=== PATIENT | female | born 1970 | race Caucasian/White ===

== ENCOUNTER 2020-11-12 14:34 | Emergency (ER) | payer BC, SELFPAY ==
[2020-11-12 14:34] VITALS: BP 138/78; PULSE 70; RESP 16; TEMP 36.4; O2SAT 98; BMI 32.2
[2020-11-12 14:49] VITALS: BP 136/84; PULSE 65; RESP 17; O2SAT 99
--- NOTE | 2020-11-12 14:52 | EKG12_ITS ---
Test Reason : CP Blood Pressure : / mmHG Vent. Rate : 059 BPM Atrial Rate : 059 BPM P-R Int : 116 ms QRS Dur : 082 ms QT Int : 432 ms P-R-T Axes : 034 020 025 degrees QTc Int : 427 ms Sinus bradycardia Nonspecific ST and T wave abnormality Abnormal ECG Confirmed by SOULEYMANE HOWARD, LUCIO ([id number]), editorial specialist GARCIA REDDY ([id number]) on 11/18/2020 9:45:25 A M Referred By: YEISON Confirmed By:JAZMINE COMER MD
--- NOTE | 2020-11-12 14:53 | ED.DCSUM_ITS ---
History of Present Illness Chief Complaint: Chest Pain Informant: Patient Onset: Days - 2 Narrative: Intermittent substernal chest pain for the past 2 days. States sharp in nature radiating left arm lasting 15 to 20 seconds. States would have shortness of breath with this and sweats. Tobacco history that she is cutting back on. Father with IA history unknown age. Denies history of hypertension, diabetes, hypercholesterolemia. No recent travel, surgeries, or immobilizations. Of note she states she had Covid twice this year first time in November 28 time this past summer, states she has no residual symptoms from these. She reports she saw her medical records, 2012 hospitalization that she had a left ventricular perforation, however there was no surgical procedures done at that time there is no heart cath done at that time, she states she was hospitalized for 4 days that year. She has never had a heart cath, stress test was years ago. States pain worse with deep breaths. No history of PE or DVT. Prior similar symptoms: No Past Medical History - Allergies and Home Meds Allergies/Adverse Reactions: Allergies Penicillins Allergy (Verified 11/12/20 14:39) Anaphylaxis topiramate [From Topamax] Allergy (Verified 11/12/20 14:39) Rash Past Medical History: - - Asthma, Covid infection history x2 Smoking Status: Current every day smoker Review of Systems General: Denies: Chills, Fever, Sweats Eyes: Denies: Visual changes - bilaterally, Diplopia ENT: Denies: Rhinorrhea, Sore throat Cardiovascular: Denies: Chest pain, Palpitations Respiratory: Denies: Dyspnea, Cough, Dyspnea on exertion Gastrointestinal: Denies: Abdominal pain, Nausea, Vomiting, Diarrhea, Melena, Hematochezia Genitourinary: Denies: Dysuria, Hematuria, Frequency Musculoskeletal: Denies: Back pain, Extremity Pain Skin: Denies: Rash, Wounds Neurological: Denies: Headache, Weakness, Numbness Physical Exam Vital Signs/Narrative: Vital Signs Temp Pulse Resp BP Pulse Ox 11/12/20 14:49 65 17 136/84 H 99 11/12/20 14:34 97.6 F L 70 16 138/78 H 98 Diagnostic/Tx/Re-eval Clinical Impression(s) from Imaging Studies Chest X-Ray 11/12/20 16:45 IMPRESSION: Normal x-ray examination of the chest. Electronically Signed: Mackenzie Kelsey MD at 17:02 EST Tel , Service support , Abnormal Lab Results 11/12/20 11/12/20 11/12/20 15:00 15:00 15:00 WBC 7.7 RBC 4.28 Hgb 12.9 Hct 40.1 MCV 93.7 MCH 30.1 MCHC 32.2 RDW Std Deviation 43.5 RDW Coeff of Teddy 12.7 Plt Count 212 MPV 10.9 Immature Gran % (Auto) 0.300 Neut % (Auto) 51.5 Lymph % (Auto) 38.1 Cochran % (Auto) 8.4 Eos % (Auto) 1.3 Baso % (Auto) 0.4 Absolute Neuts (auto) 4.0 Absolute Lymphs (auto) 2.94 Nucleated RBC % 0 PT 12.1 INR 0.9 APTT 28.9 D-Dimer Quant (PE/DVT) 0.44 Sodium 142 Potassium 4.1 Chloride 111 H Carbon Dioxide 26.0 Anion Gap 5 BUN 20 H Creatinine 0.96 Estim Creat Clear Calc 70.72 Est GFR (MDRD) Af Amer 80 Est GFR (MDRD) Non-Af 66 BUN/Creatinine Ratio 20.9 H Glucose 89 Calcium 8.7 Troponin I < 0.015 11/12/20 17:45 WBC RBC Hgb Hct MCV MCH MCHC RDW Std Deviation RDW Coeff of Teddy Plt Count MPV Immature Gran % (Auto) Neut % (Auto) Lymph % (Auto) [place]chran % (Auto) Eos % (Auto) Baso % (Auto) Absolute Neuts (auto) Absolute Lymphs (auto) Nucleated RBC % PT INR APTT D-Dimer Quant (PE/DVT) Sodium Potassium Chloride Carbon Dioxide Anion Gap BUN Creatinine Estim Creat Clear Calc Est GFR (MDRD) Af Amer Est GFR (MDRD) Non-Af BUN/Creatinine Ratio Glucose Calcium Troponin I < 0.015 - EKG Initial EKG Interpretation: Sinus Rhythm - Sinus rate of 59, no ST changes there is T wave inversions in anterior leads V1 to V3. - Medical Decision Making Patient had T wave versions anterior leads with no old for comparison. Planing of pleuritic symptoms with history of Covid infection. Cardiac work-up including a D-dimer obtained and all within normal limits. Patient's heart score is a 3. Delta 3-hour troponin obtained also normal. Patient states just moved to the area, will give her follow-up with PCP and cardiology for outpatient reevaluation and work-up. With her chest pain with dyspnea was an outpatient Covid testing for further evaluation. Signs and symptoms discussed return. All questions were answered. ED Disposition - Plan for ED Patient: Disposition: Home or Assisted Living Diagnosis: Chest pain, Suspected COVID-19 virus infection Instructions: Coronavirus Disease 2019 (COVID-19): Overview, ED Chest Pain, Uncertain Cause Referrals: Conrado Hancock MD [STAFF PHYSICIAN] - 3-5 Days Conrado Moses MD [STAFF PHYSICIAN] - 1 Week
[2020-11-12] MEDS: Aspirin 81 MG TAB.CHEW 324 MG PO (15:03)
[2020-11-12 15:06] LABS: Absolute Lymphocyte Count 2.94 X10^3/uL (0.83-4.51); Basophil# 0.03 X10^3/uL; Basophil% 0.4 % (0-1); Eosinophils% 1.3 % (0-5); Hematocrit 40.1 % (37-47); Hemoglobin 12.9 g/dL (12.0-15.0); Lymphocyte # 2.94 X10^3/ul (4.0); Lymphocyte % 38.1 % (19-41); Mean Corp Hgb Conc 32.2 g/dL (32-36); Mean Corpuscular Hgb 30.1 pg (27.0-32.0); Mean Corpuscular Volume 93.7 fL (81-99); Mean Platelet Vol. 10.9 fl (6.2-12.0); Monocyte# 0.65 X10^3/uL; Monocyte% 8.4 % (0-10); NRBC Flagged by Analyzer 0 % (0-5); Neutrophil # 3.97 X10^3/uL (2.7-7.7); Neutrophil % 51.5 % (47-70); Platelet Count 212 K/mm3 (150-450); RBC Distribution Width CV 12.7 % (11.6-14.6); RBC Distribution Width SD 43.5 fl (35.1-43.9); Red Blood Count 4.28 M/mm3 (4.2-5.4); White Blood Count 7.7 K/mm3 (4.4-11.0)
[2020-11-12 15:20] LABS: International Normalized Ratio 0.9; Prothrombin Time (Protime)PT. 12.1 SECONDS (11.7-14.9)
[2020-11-12 15:21] LABS: Partial Thromboplast Time 28.9 Seconds (24.1-36.2)
[2020-11-12 15:23] LABS: Anion Gap 5 (5-15); BUN 20 mg/dL (7-18); BUN/Creat Ratio 20.9 RATIO (10-20); Calcium,Total 8.7 mg/dL (8.5-10.1); Chloride 111 mmol/L (98-107); Creatinine, Serum 0.96 mg/dL (0.55-1.02); EST Glomerular Filtration Rate 66 mL/min (>60); Est Glom Filt Rate - Afr Amer 80 mL/min (>60); Estimated Creatinine Clearance 70.72 ml/min; Glucose 89 mg/dL (74-106); Potassium 4.1 mmol/L (3.5-5.1); Sodium Level 142 mmol/L (136-145)
[2020-11-12 15:24] LABS: D-Dimer Quantitative (DVT/PE) 0.44 FEU/ug/m (0.27-0.49)
[2020-11-12 16:44] VITALS: BP 110/56; PULSE 48; RESP 14; O2SAT 99
--- NOTE | 2020-11-12 16:45 | RAD_ITS ---
STUDY: X-RAY CHEST REASON FOR EXAM: Female, 50 years old. LEFT CHEST PAIN WITH RADIATION TO LEFT ARM INTERMITTENT OVER 2 DAYS. PAIN TO BACK. SWEATING. SOB. PAIN WITH DEEP BREATHING. TECHNIQUE: Single AP portable view of the chest. COMPARISON: None. FINDINGS: The lungs are clear and expanded. There is no demonstrated pleural abnormality. Normal size heart. Normal mediastinum and keely. Normal visualized pulmonary arteries. Normal visualized aortic arch and descending thoracic aorta. Normal visualized thoracic spine. Normal visualized ribs, clavicles, and shoulders. There is no demonstrated abnormality of the visualized soft tissue structures of the upper abdomen. RAD/Chest 1 View (Portable) IMPRESSION: Normal x-ray examination of the chest. Electronically Signed: Mackenzie Kelsey MD at 17:02 EST Tel , Service support ,
[2020-11-12 18:00] VITALS: BP 130/72; PULSE 48; RESP 15; O2SAT 98
[2020-11-12 19:02] VITALS: BP 110/56; PULSE 52; RESP 14; O2SAT 100
--- NOTE | 2020-11-12 19:16 | ED.RN ---
resp tested pt for COVID prior to dc
== END 2020-11-12 19:16 | disposition home or self-care (01) ==
PROVIDERS: Emergency Provider Emergency Medicine
DX: R07.2 Precordial pain (principal); J45.909 Unspecified asthma, uncomplicated; Z20.828 Contact with and (suspected) exposure to other viral communicable diseases; F17.200 Nicotine dependence, unspecified, uncomplicated; Z86.19 Personal history of other infectious and parasitic diseases
CPT/HCPCS: 71045; 80048; 84484; 85025; 85379; 85610; 85730; 87635; 93005; 99285; A4216; U0003

== ENCOUNTER 2021-07-23 17:16 | Observation (INO) | payer BC, SELFPAY ==
[2021-07-23] VITALS (8 sets, daily range): BP systolic 107–135; BP diastolic 44–73; PULSE 56–79; RESP 12–17; TEMP 36.3–36.7; O2SAT 94–98; BMI 31.6; BMI 31.1
--- NOTE | 2021-07-23 17:45 | EKG12_ITS ---
Test Reason : CP Blood Pressure : / mmHG Vent. Rate : 069 BPM Atrial Rate : 069 BPM P-R Int : 126 ms QRS Dur : 084 ms QT Int : 418 ms P-R-T Axes : 052 037 030 degrees QTc Int : 447 ms Normal sinus rhythm Nonspecific ST and T wave abnormality Abnormal ECG Confirmed by KAYLEIGH HOWARD, CATHY ([id number]), metropolitan editor GARCIA REDDY ([id number]) on 07/26/2021 12:48:22 PM Referred By: ATIF Confirmed By:CATHY VICTOR MD
[2021-07-23] MEDS: Aspirin 81 MG TAB.CHEW 324 MG PO (18:11)
--- NOTE | 2021-07-23 18:15 | RAD_ITS ---
INDICATION: chest pain EXAMINATION/TECHNIQUE: X-RAY - XR Chest 2 Views COMPARISON: None. FINDINGS: The lungs are clear. The cardiomediastinal silhouette is unremarkable. No pleural effusion or pneumothorax. No acute osseous abnormalities. RAD/Chest PA and Lateral IMPRESSION: No acute radiographic abnormalities. Electronically Signed: Bernard Guzman MD at 18:43 EDT Tel , Service support ,
[2021-07-23 18:51] LABS: Absolute Lymphocyte Count 2.97 X10^3/uL (0.83-4.51); Absolute Neutrophil Count 3.7 X10^3/uL (2.0-7.7); Basophil# 0.03 X10^3/uL; Basophil% 0.4 % (0-1); Eosinophil# 0.18 X10^3/uL; Eosinophils% 2.4 % (0-5); Hematocrit 40.2 % (37-47); Hemoglobin 13.1 g/dL (12.0-15.0); Lymphocyte # 2.97 X10^3/ul (0.83-4.51); Lymphocyte % 39.3 % (19-41); Mean Corp Hgb Conc 32.6 g/dL (32-36); Mean Corpuscular Hgb 30.3 pg (27.0-32.0); Mean Corpuscular Volume 92.8 fL (81-99); Mean Platelet Vol. 11.1 fl (6.2-12.0); Monocyte# 0.61 X10^3/uL; Monocyte% 8.1 % (0-10); NRBC Flagged by Analyzer 0 % (0-5); Neutrophil # 3.73 X10^3/uL (2.7-7.7); Neutrophil % 49.4 % (47-70); Platelet Count 237 K/mm3 (150-450); RBC Distribution Width CV 12.3 % (11.6-14.6); RBC Distribution Width SD 41.9 fl (35.1-43.9); Red Blood Count 4.33 M/mm3 (4.2-5.4); White Blood Count 7.6 K/mm3 (4.4-11.0)
[2021-07-23 19:04] LABS: Anion Gap 7 (5-15); BUN 18 mg/dL (7-18); BUN/Creat Ratio 19.8 RATIO (10-20); Chloride 110 mmol/L (98-107); Creatinine, Serum 0.91 mg/dL (0.55-1.02); EST Glomerular Filtration Rate 70 mL/min (>60); Est Glom Filt Rate - Afr Amer 84 mL/min (>60); Estimated Creatinine Clearance 74.61 ml/min; Glucose 95 mg/dL (74-106); Potassium 3.7 mmol/L (3.5-5.1); Sodium Level 141 mmol/L (136-145); Troponin-I HS 4 pg/mL (3.0-54.0)
--- NOTE | 2021-07-23 19:27 | ED.VIS.CHEST ---
HPI History of Present Illness Chief Complaint: Chest Pain Narrative Narrative: Patient presenting for evaluation secondary chest pain. Patient has an underlying history of VSD, does not frequent physician but actually has follow-up with a weed burner coming within the next couple of weeks. Patient states that since yesterday she has developed chest pain. She describes it as a tightness type feeling that goes up into her jaw and down into her left arm. Is clearly exertional and has been associated with intermittent feelings as if she is going to pass out, and is associated with exertional dyspnea. Patient denies any DVT or PE risk factors. She has had a stress test but it was in the distant past around 9 years ago. She denies any premature family history of heart disease. She denies any recent illnesses. Review of systems otherwise negative. PFSH PFSH Home Medications albuterol sulfate 2 puff IH Q6H PRN 11/12/20 [History Last Taken Unknown] diclofenac sodium 75 mg PO DAILY 07/23/21 [History Last Taken Unknown] Allergy/AdvReac Type Severity Reaction Status Date / Time Penicillins Allergy Anaphylaxis Verified 07/23/21 17:22 topiramate [From Topamax] Allergy Rash Verified 07/23/21 17:22 Social History Smoking Status: Current every day smoker tobacco type: cigarettes ROS ROS ED Constitutional Constitutional ED: Denies fever(s) Eyes Eyes: Denies change in vision ENT ENT ED: Denies rhinorrhea or sore throat Cardiovascular Cardiovascular: Reports as per HPI and chest pain Respiratory/Chest Respiratory/Chest: Reports dyspnea Gastrointestinal Gastrointestinal: Denies abdominal pain, nausea or vomiting Genitourinary Genitourinary ED: Denies dysuria Musculoskeletal Musculoskeletal: Denies myalgias or neck pain Integumentary Denies rash Neurologic Neurologic: Denies headache(s), paresthesias or weakness Psychiatric Psychiatric: Denies depression Endocrine Endocrinology: Denies polydipsia or polyuria Hematologic/Lymphatic Hematologic/Lymphatic: Denies easy bleeding or easy bruising Allergic/Immunologic Allergic/Immunologic ED: Denies urticaria EXAM Physical Exam Const Vital Signs: 07/23/21 17:17 07/23/21 17:23 07/23/21 18:15 Temperature 98.1 F Temperature Source Oral Pulse Rate 79 Respiratory Rate 13 Respiratory Effort Normal Non-Labored Blood Pressure 135/73 H Blood Pressure Mean 93 Pulse Ox 98 96 Oxygen Delivery Method Room Air Room Air 07/23/21 18:23 07/23/21 19:11 Temperature Temperature Source Pulse Rate 65 60 Respiratory Rate 17 12 Respiratory Effort Blood Pressure 120/65 109/53 L Blood Pressure Mean 83 71 Pulse Ox 96 97 Oxygen Delivery Method Room Air Room Air Positive well nourished and well developed General Appearance ED: well developed and NAD HEENT Reports moist mucous membranes normocephalic and atraumatic Eyes EOMs intact bilaterally Neck no lymphadenopathy, supple and no JVD Chest Wall inspection of chest normal and palpation of chest normal Chest Narrative: No evidence of vesicular rash Resp normal respiratory effort and clear to auscultation bilaterally Auscultation: Negative for rales, rhonchi or wheezes Cardio regular rate, regular rhythm, S1 normal heart sound, S2 normal heart sound and no murmurs Peripheral Pulses: radial pulses present and posterior tibial pulses present GI normal to inspection, nondistended, normoactive bowel sounds, soft to palpation and non-tender Extremity normal to inspection Extremity Narrative: Calves are supple no palpable cord General Extremety ED: Negative for edema or tenderness General Extremity: Negative for edema Neuro oriented x3 and no sensory deficits noted Sensorium / Orientation: awake and alert Psych mental status grossly normal Skin no rashes or lesions noted Heart Score History: Highly Suspicious ECG: Nonspecific Repolarization Age: >45 - <65 years Risk Factors: 1 or 2 Risk Factors Troponin: </= Normal Limit Score: 5 MDM MDM MDM Narrative Medical decision making narrative: Patient presented secondary to chest pain. EKG shows no acute ischemic changes, but does show diffuse T wave flattening that was nonspecific. Chest x-ray by my personal review as well as radiology is unremarkable. CBC chemistry and troponin found to be unremarkable. Despite the patient's negative work-up, she does have a very concerning story with exertional chest pain dyspnea and has a heart score of at least 5. I believe that she requires admission for provocative testing. Patient be admitted on the hospitalist. Lab Data Labs: Laboratory Results - last 24 hr 07/23/21 07/23/21 17:31 17:31 WBC 7.6 RBC 4.33 Hgb 13.1 Hct 40.2 MCV 92.8 MCH 30.3 MCHC 32.6 RDW Std Deviation 41.9 RDW Coeff of Teddy 12.3 Plt Count 237 MPV 11.1 Immature Gran % (Auto) 0.400 Neut % (Auto) 49.4 Lymph % (Auto) 39.3 [place] % (Auto) 8.1 Eos % (Auto) 2.4 Baso % (Auto) 0.4 Absolute Neuts (auto) 3.7 Absolute Lymphs (auto) 2.97 Nucleated RBC % 0 Sodium 141 Potassium 3.7 Chloride 110 H Carbon Dioxide 24.0 Anion Gap 7 BUN 18 Creatinine 0.91 Estim Creat Clear Calc 74.61 Est GFR (MDRD) Af Amer 84 Est GFR (MDRD) Non-Af 70 BUN/Creatinine Ratio 19.8 Glucose 95 Calcium 9.0 Troponin I High Sens 4 Radiography Diagnostic Testing: Radiology Impression Chest X-Ray 07/23/21 18:15 IMPRESSION: No acute radiographic abnormalities. Electronically Signed: Bernard Guzman MD at 18:43 EDT Tel , Service support , EKG Initial EKG: Attestation: I personally reviewed and interpreted this EKG as follows: (Sinus rhythm at 69 nonspecific T wave flattening noted diffusely, normal intervals) Discharge Plan Triage Chief Complaint: Chest Pain ED Provider: Benton Kumar Dx/Rx/DC Orders Clinical Impression: Chest pain Prescriptions: No Action albuterol sulfate 1 PUFF inhaler 2 puff IH Q6H PRN (Reason: Wheezing) RF: 0 diclofenac sodium 75 mg tablet,delayed release (DR/EC) 75 mg PO DAILY RF: 0 Primary Care Provider: Care Physician,No Primary Referrals: Care Physician,No Primary [Primary Care Provider] - Disposition Disposition: Acute Care [facility]
--- NOTE | 2021-07-23 19:28 | HP.PCM.HOS_ITS ---
HPI - General General Date of Admission: 07/23/21 Date of Service: 07/23/21 Chief Complaint: Chest pain HPI Narrative The patient is a 50 y/o F w/ PMHx: OA, Asthma, Obesity, Tobacco use who presents to the [facility] ED on 07/23/21 with history of onset chest pain starting the day prior, substernal/L shoulder and back with radiation into her neck left also additionally with associated nausea, lightheadedness/dizziness with dyspnea, sensation of palpations prompting ED evaluation. She describes discomfort as a tightness/squeezing sensation however she intermittently does have sharp shooting discomfort and when she has these episodes she rates her discomfort 10 out of 10 in severity, currently upon ED evaluation reporting 4 out of 10 alth ough does appear extremely comfortable and not in pain. She reported plans to see Hydraulic Billet Maker this coming Monday. Patient with stress 2012 which was unremarkable. Patient also reports when she does have these episodes and feels short of breath she is checked her oxygenation and it has been decreased. Work- up in the ED T 98.1, heart rate 79, BP 135/73, respiratory rate 13, 98% on room air, CBC with WBC 7.6, hemoglobin 13.1, platelet 237 without marked shift, BMP with chloride 110 otherwise not marked appearing, high-sensitivity troponin 4, chest x-ray with no acute cardiopulmonary findings, EKG with nonspecific diffuse T wave flattening which is similar to prior. In the ED patient ministered aspirin 324 mg p.o. x1. [facility] Medical History (Updated 07/24/21 @ 02:[address] Chantell Thacker MD) Abdominal hernia Bulging disc Chronic post-concussion headache GERD (gastroesophageal reflux disease) Hiatal hernia IBS (irritable bowel syndrome) Mild cervical dysplasia PTSD (post-traumatic stress disorder) Home Medications albuterol sulfate 2 puff IH Q6H PRN 11/12/20 [History Last Taken Unknown] diclofenac sodium 75 mg PO DAILY 07/23/21 [History Last Taken Unknown] Allergy/AdvReac Type Severity Reaction Status Date / Time Penicillins Allergy Anaphylaxis Verified 07/23/21 17:22 topiramate [From Topamax] Allergy Rash Verified 07/23/21 17:22 Family History (Updated 07/24/21 @ 02:[address] Chantell Thcaker MD) Mother Hypertension Father Heart disease Surgical History (Updated 07/23/21 @ 20:45 by Margret Cohen) H/O wrist surgery Tubal ligation status Social History (Updated 07/24/21 @ 02:[address] Chantell Thacker MD) household members: other details: Patient notes her son lives with her. Smoking Status: Current every day smoker tobacco type: cigarettes Smoking packs per day: 0.5 Smoking cigarettes per day: 10.0 alcohol intake: current alcohol intake frequency: holidays/special occasions only substance use type: does not use ROS ROS Narrative Admission Review of Systems: CONSTITUTIONAL: No weight loss, fever, chills, + weakness or fatigue. HEENT: Eyes: No visual loss, blurred vision, double vision or yellow sclerae. Ears, Nose, Throat: No hearing loss, sneezing, congestion, runny nose or sore throat. SKIN: No rash or itching, lesions, wounds. CARDIOVASCULAR: + chest pain, chest pressure or chest discomfort, palpitations, No edema, orthopnea, syncopal events. RESPIRATORY: + shortness of breath, No cough or sputum, wheezing, hemoptysis. GASTROINTESTINAL: No anorexia, nausea, vomiting or diarrhea, abdominal pain, melena, BRBPR. GENITOURINARY: No dysuria, frequency, urgency or retention. NEUROLOGICAL: + LH/dizziness. No headache, paralysis, ataxia, numbness or tingling in the extremities, focal weakness, change in bowel or bladder control, seizure. MUSCULOSKELETAL: + muscle, back pain, joint pain or stiffness. HEMATOLOGIC: No anemia, bleeding or bruising. LYMPHATICS: No enlarged nodes. No history of splenectomy. PSYCHIATRIC: No history of depression or anxiety. ENDOCRINOLOGIC: + reports of sweating, cold or heat intolerance. No polyuria or polydipsia. ALLERGIES: No history of asthma, hives, eczema or rhinitis. Vital Signs Vital Signs Vital Signs: 07/23/21 17:17 07/23/21 17:23 07/23/21 18:15 Temperature 98.1 F Temperature Source Oral Pulse Rate 79 Respiratory Rate 13 Respiratory Effort Normal Non-Labored Blood Pressure 135/73 H Blood Pressure Mean 93 Pulse Ox 98 96 Oxygen Delivery Method Room Air Room Air 07/23/21 18:23 07/23/21 19:11 Temperature Temperature Source Pulse Rate 65 60 Respiratory Rate 17 12 Respiratory Effort Blood Pressure 120/65 109/53 L Blood Pressure Mean 83 71 Pulse Ox 96 97 Oxygen Delivery Method Room Air Room Air Weight Weight: 207 lb 10.807 oz Body Mass Index (BMI) 31.6 Physical Exam Narrative Physical Examination: General: Awake, alert, oriented x 3 and cooperative, seated upright in the ED bed, reports discomfort ongoing but appears very comfortable, very talkative. Skin: Normal color, normal turgor, no icterus, no cyanosis. HEENT: AT/NC, EOMI, PERRLA, mildly dry MM, no carotid bruits or JVD noted. Lungs: CTA bilaterally, moderate effort, mild decrease BL bases, no rales, ronchi or wheezing. Heart: Bradycardic with regular rhythm; no gallop, rub audible. Abdomen: Soft, obese, NTTP, ND, normal BS, no HSM. Extremities: No cyanosis, no clubbing, bilateral lower extremity ankle nonpitting chronic edema. Neurological: Patient awake, alert, oriented as noted, cognitive function intact; pupils equally reactive to light and accommodation, cranial nerves II- XII grossly normal, moving all 4 extremities, no focal deficits, strength preserved currently but at rest. Psychiatric: Affect appears normal, no acute evidence of depressive or anxiety feelings. Results Lab / Micro Data Result Diagrams: 07/23/21 17:31 07/23/21 17:31 Labs: Laboratory Results - last 24 hr 07/23/21 17:31: WBC 7.6, RBC 4.33, Hgb 13.1, Hct 40.2, MCV 92.8, MCH 30.3, MCHC 32.6, RDW Std Deviation 41.9, RDW Coeff of Teddy 12.3, Plt Count 237, MPV 11.1, Immature Gran % (Auto) 0.400, Neut % (Auto) 49.4, Lymph % (Auto) 39.3, [place] % (Auto) 8.1, Eos % (Auto) 2.4, Baso % (Auto) 0.4, Absolute Neuts (auto) 3.7, Absolute Lymphs (auto) 2.97, Nucleated RBC % 0 07/23/21 17:31: Sodium 141, Potassium 3.7, Chloride 110 H, Carbon Dioxide 24.0, Anion Gap 7, BUN 18, Creatinine 0.91, Estim Creat Clear Calc 74.61, Est GFR ( MDRD) Af Amer 84, Est GFR (MDRD) Non-Af 70, BUN/Creatinine Ratio 19.8, Glucose 95, Calcium 9.0, Troponin I High Sens 4 Radiology Impression Chest X-Ray 07/23/21 18:15 IMPRESSION: No acute radiographic abnormalities. Electronically Signed: Bernard Guzman MD at 18:43 EDT Tel , Service support , Assessment & Plan Assessment/Plan (1) Chest pain: QUALIFIERS: Chest pain type: unspecified Qualified Code(s): R07.9 - Chest pain, unspecified PLAN: The patient is a 50 y/o F w/ PMHx: OA, Asthma, Obesity, Tobacco use who presents to the [facility] ED on 07/23/21 with history of onset chest pain starting the day prior, substernal/L shoulder and back with radiation into her neck left also additionally with associated nausea, lightheadedness/dizziness with dyspnea, sensation of palpations prompting ED evaluation. 1. Chest Pain: EKG in ED nonspecific diffuse T wave flattening with no acute ev idence of ischemia similar to prior, CXR w/ no acute cardiopulmonary findings, initial trop high-sensitivity 4. Will admit to PCU, place on a monitored bed to assure no acute myocardial infarction with serial cardiac enzymes and EKGs. If repeat serial cardiac enzymes and EKGs remain unremarkable will pursue a.m. cardiac stress testing. Given unclear specific type of ventricular anomaly will request stress echo. Magnesium level requested. FLP in AM. ASA, NG, morphine. 2. Unclear specific type ventricular anomaly: Patient reports history of ventricular anomaly, unclear specific type, stress echo ordered as noted above. 3. Patient reported hypoxia with exertion: We will request ambulatory o xygenation assessments, continue #1 evaluation. 4. Chronic asthma, reported as exercise-induced: Encourage strongly tobacco cessation, will maintain on PRN albuterol, HOB, IS parameters. 5. Chronic bradycardia: Patient with ongoing bradycardia during evaluations, chronic, asymptomatic. 6. Obesity: Weight loss and lifestyle changes encouraged. 7. Tobacco Abuse: Encouraged cessation, inpatient consultation per RT, NR if desired. 8. DVT prophylaxis: SCDs, Lovenox. Charges/Coding Visit Charges OBSV E&M: [id number] Initial observation care L3
[2021-07-23 19:58] LABS: Magnesium 2.1 mg/dL (1.6-2.6)
--- NOTE | 2021-07-23 20:21 | EKG12_ITS ---
Test Reason : AM EKG Blood Pressure : / mmHG Vent. Rate : 053 BPM Atrial Rate : 053 BPM P-R Int : 136 ms QRS Dur : 086 ms QT Int : 482 ms P-R-T Axes : 050 035 067 degrees QTc Int : 452 ms Sinus bradycardia Nonspecific ST and T wave abnormality Abnormal ECG When compared with ECG of 23-JUL-2021 20:40, MANUAL COMPARISON REQUIRED, DATA IS UNCONFIRMED Confirmed by KAYLEIGH HOWARD, CATHY ([id number]), legal editor GARCIA REDDY ([id number]) on 07/27/2021 9:41:33 AM Referred By: BOO Confirmed By:CATHY VICTOR MD
[2021-07-23] MEDS: Famotidine 20 MG Tablet PO (20:51)
[2021-07-23] MEDS: 0.9% Normal Saline 1,000 ML 100 ML IV (20:51)
--- NOTE | 2021-07-23 21:07 | PCS.PANDOC ---
PANDEMIC DOCUMENTATION INITIATED: Date: 07/12/2021 Time: 190
[2021-07-23 21:59] LABS: Troponin-I HS 6 pg/mL (3.0-54.0)
[2021-07-24 00:25] LABS: Troponin-I HS 6 pg/mL (3.0-54.0)
[2021-07-24 00:26] VITALS: BP 101/63; PULSE 56; RESP 12; TEMP 36.6; O2SAT 97
[2021-07-24 03:00] VITALS: PULSE 52
[2021-07-24 05:47] LABS: Absolute Neutrophil Count 2.9 X10^3/uL (2.0-7.7); Basophil# 0.02 X10^3/uL; Basophil% 0.3 % (0-1); Eosinophil# 0.13 X10^3/uL; Hematocrit 38.6 % (37-47); Hemoglobin 12.2 g/dL (12.0-15.0); Lymphocyte % 43.4 % (19-41); Mean Corp Hgb Conc 31.6 g/dL (32-36); Mean Corpuscular Hgb 29.8 pg (27.0-32.0); Mean Corpuscular Volume 94.4 fL (81-99); Mean Platelet Vol. 10.5 fl (6.2-12.0); Monocyte% 9.3 % (0-10); NRBC Flagged by Analyzer 0 % (0-5); Neutrophil # 2.88 X10^3/uL (2.7-7.7); Neutrophil % 44.7 % (47-70); Platelet Count 214 K/mm3 (150-450); RBC Distribution Width CV 12.2 % (11.6-14.6); RBC Distribution Width SD 42.4 fl (35.1-43.9); Red Blood Count 4.09 M/mm3 (4.2-5.4); White Blood Count 6.5 K/mm3 (4.4-11.0)
--- NOTE | 2021-07-24 05:55 | EKG12_ITS ---
Test Reason : CP ADMISSION Blood Pressure : / mmHG Vent. Rate : 052 BPM Atrial Rate : 052 BPM P-R Int : 124 ms QRS Dur : 088 ms QT Int : 476 ms P-R-T Axes : 041 037 038 degrees QTc Int : 442 ms Sinus bradycardia Nonspecific T wave abnormality Abnormal ECG When compared with ECG of 23-JUL-2021 17:27, MANUAL COMPARISON REQUIRED, DATA IS UNCONFIRMED Confirmed by KAYLEIGH HOWARD, CATHY ([id number]), editorial director GARCIA REDDY ([id number]) on 07/27/2021 9:43:28 AM Referred By: BOO Confirmed By:CATHY VICTOR MD
[2021-07-24 06:18] LABS: ALB/GLOB Ratio 0.9 RATIO (0.9-2.4); AST(SGOT) 17 U/L (15-37); Alanine Aminotransfer ALT/SGPT 26 U/L (13-56); Alkaline Phosphatase 73 U/L (45-117); Anion Gap 5 (5-15); BUN 14 mg/dL (7-18); BUN/Creat Ratio 19.5 RATIO (10-20); Calcium,Total 7.9 mg/dL (8.5-10.1); Chloride 113 mmol/L (98-107); Cholesterol 176 mg/dL (200); Creatinine, Serum 0.72 mg/dL (0.55-1.02); EST Glomerular Filtration Rate 91 mL/min (>60); Est Glom Filt Rate - Afr Amer 110 mL/min (>60); Globulin 3.2 g/dL (2.2-4.2); Glucose 96 mg/dL (74-106); High Density Lipoprotein 36 mg/dL; Potassium 3.9 mmol/L (3.5-5.1); Protein, Total 6.2 g/dL (6.4-8.2); Sodium Level 142 mmol/L (136-145); Triglycerides 106 mg/dL; Very Low Density Lipoprotein 21 mg/dL (5-40)
[2021-07-24] MEDS: Aspirin E.C. 81 MG Tablet PO (06:19)
[2021-07-24] MEDS: 0.9% Normal Saline 1,000 ML 100 ML IV (06:19)
[2021-07-24 06:20] VITALS: BP 107/47; PULSE 54; RESP 14; TEMP 36.6; O2SAT 98
[2021-07-24 07:39] VITALS: PULSE 48
--- NOTE | 2021-07-24 07:40 | ECHOD_ITS ---
Reason For Study: Ventricular abnormality history Procedure This was a 2D Doppler, Color Flow transthoracic echocardiogram. Exam performed in department. Left Ventricle Normal LV size. The estimated ejection fraction is 40 %. Stage 2 diastolic dysfunction. There is mild to moderate global hypokinesis of the left ventricle. Right Ventricle Normal RV size. Normal systolic function. Atria Normal left atrium. Normal right atrium. Mitral Valve Normal mitral valve. Tricuspid Valve Normal tricuspid valve. Mild (1+) tricuspid valve insufficiency. Pulmonary artery systolic pressure is 26 mmHg. Aortic Valve Normal aortic valve. Trisinus/trileaflet aortic valve. Pulmonic Valve Normal pulmonic valve. Great Vessels Normal aortic root. Pericardium/Pleural No pericardial effusion. MMode/2D Measurements & Calculations LVIDd: 4.9 cm IVSd: 0.89 cm Ao root diam: 3.2 cm LVIDs: 3.2 cm LVPWd: 0.70 cm RVDd: 3.1 cm FS: 34.8 % LAV(MOD-bp): 40.6 ml LVAd ap4: 21.8 cm2 SV(MOD-sp4): 32.1 ml LAV(MOD-bp) Indexed: 19.5 ml/m2 LVLd ap4: 7.1 cm LAV(MOD-sp2): 48.0 ml EDV(MOD-sp4): 56.4 ml LAV(MOD-sp4): 31.3 ml EDV(sp4-el): 56.9 ml LVAs ap4: 12.7 cm2 LVLs ap4: 5.9 cm ESV(MOD-sp4): 24.3 ml ESV(sp4-el): 23.0 ml EF(MOD-sp4): 56.9 % EF(sp4-el): 59.5 % SV(sp4-el): 33.9 ml LA A4 area: 13.8 cm2 LA dimension(2D): 3.8 cm RA A4 area: 14.0 cm2 Doppler Measurements & Calculations MV E max pawan: 78.1 cm/sec Lat Peak E' Pawan: 12.0 cm/sec Med Peak E' Pawan: 6.8 cm/sec MV A max pawan: 52.8 cm/sec E/E' lat: 6.5 E/E' med: 11.4 MV E/A: 1.5 Ao V2 max: 138.2 cm/sec LV V1 max: 96.3 cm/sec PA V2 max: 87.4 cm/sec Ao max P.6 mmHg LV V1 max P.7 mmHg Ao V2 mean: 98.6 cm/sec Ao mean P.2 mmHg Ao V2 VTI: 37.0 cm TR max pawan: 239.4 cm/sec TR max P.9 mmHg ECHO/Echo Complete Interpretation Summary Normal LV size. The estimated ejection fraction is 40 %. There is mild to moderate global hypokinesis of the left ventricle. Stage 2 diastolic dysfunction. Pulmonary artery systolic pressure is 26 mmHg. Ordering Physician: Kaushik Arana Performed By: Kita Diaz, CASSY, RVT
[2021-07-24 07:50] VITALS: O2SAT 95
--- NOTE | 2021-07-24 11:16 | STRESSREP ---
Stress Test Report Pharmacologic myocardial perfusion stress test. 50-year-old lady with a history of obstructive sleep apnea and chest pain. Stress protocol: Resting KG demonstrates sinus bradycardia with a rate of 41 bpm normal intervals are noted. 0.4 mg of regadenoson was infused per usual protocol followed by rapid intravenous saline flush injection continuous EKG monitoring was performed. The patient maintained sinus rhythm throughout the recording. At rest there were no ST or T wave changes noted to suggest abnormal flow reserve and at peak infusion nonspecific ST changes were noted with did not meet the criteria for ischemia. The peak blood pressure was 85 bpm which was 50% of max infected heart rate. The final blood pressure was 118/66 mmHg. Myocardial perfusion protocol. 13.1 mCi of technetium 99m sestamibi was injected at rest. 0.4 mg of regadenoson was infused per usual protocol peak infusion 41.0 mCi of technetium 99m sestamibi was injected stress images were obtained stress and rest images were reconstructed and compared in the short axis vertical long horizontal long axis. Gated images were also obtained per Perfusion SPECT analysis: Review of the stress images demonstrate a medium size defect noted involving the anterior septal wall to the apex. The lateral wall and inferior wall appeared to be well perfused. The resting images demonstrate a similar pattern in the similar distribution to a similar extent. The above suggests anterior septal scarring. Cardiomyopathy cannot be excluded. Gated SPECT analysis: The gated ejection fraction is 37%. Conclusion: Pharmacologic myocardial perfusion stress test with evidence of previous anterior septal scarring. No ischemia noted. Reduced ejection fraction.
--- NOTE | 2021-07-24 12:11 | PCM.DC ---
Discharge Instructions Diet Discharge Diet: Low fat / Low cholesterol and 2000 mg Sodium Diet Activity Discharge Activity: Return to Normal Activity Dressing / Incision Call your doctor if you observe: Fever of 101 or Higher, Coldness, Increased Pain, Numbness or Tingling, Change in Color, Inability to urinate, Inability to have a bowel movement, Using more than 1 pad per hour, Shortness of breath, Dizziness, Fainting spells, Swelling in the ankles, Chest pain, Prolonged hiccupping, Increased palpitations (irregular heartbeat), Calf discomfort and Uncontrolled pain Follow Up Care Test Results: Test results from this visit will be discussed in further detail at your follow-up appointment, if applicable. 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 Patient has appointment in 3 weeks. Discharge Orders/Prescriptions Prescriptions: New lisinopril 2.5 mg tablet 2.5 mg PO DAILY Qty: 30 RF: 0 Continued albuterol sulfate 1 PUFF inhaler 2 puff IH Q6H PRN (Reason: Wheezing) RF: 0 Held diclofenac sodium 75 mg tablet,delayed release (DR/EC) 75 mg PO DAILY RF: 0 Hold Instructions: Hold it for 2 weeks. Discussed with PCP as patient has congestive heart failure Referrals / Follow Up: Care Physician,No Primary [Primary Care Provider] - Within 2 Weeks Disposition Disposition (needs filled in before D/C Order can be placed): Home, Self Care
--- NOTE | 2021-07-24 12:21 | DS.PCM_ITS ---
Providers Date of Admission: 07/23/21 Primary Care Physician: Kalee Primary Care Phys Reason For Visit: CHEST PAIN Diagnosis Discharge Diagnosis (1) Chest pain: Status: Acute Code(s): R07.9 - Chest pain, unspecified Qualifiers: Chest pain type: unspecified Qualified Code(s): R07.9 - Chest pain, unspecified Medications at Discharge Home Medications albuterol sulfate 2 puff IH Q6H PRN 11/12/20 diclofenac sodium 75 mg PO DAILY 07/23/21 lisinopril 2.5 mg PO DAILY #30 tab 07/24/21 Hospital Course Summary of Care Provided Hospital Course: This 50-year-old female came to ER for chest pain mellitus substernal pressure-like, tightness sharp with radiation to left shoulder and back and left neck. Patient was admitted in PCU. Serial troponins negative. Twelve-lead EKG nonspecific T wave flattening, no change from prior EKG. Patient had 2D echo and a treadmill converted to pharmacological stress t est. Stress test reported no acute ischemia but old anterior septal scarring. 2D echo reported EF 40% with mild to moderate global hypokinesis of left ventricle. Stage II diastolic dysfunction. PASP 26 mmHg. 1+ TR. Patient has appointment with the steward/stewardess second class on in 1 to 2 weeks. Fasting profile shows low HDL 36 otherwise normal. Serum magnesium level normal. Patient other chronic Coumadin include chronic intermittent exercise-induced asthma, chronic bradycardia, obesity and tobacco abuse. As per echo, patient has chronic systolic and diastolic heart failure for which low-dose lisinopril prescribed. Patient not candidate for beta-jamison because of bradycardia. The patient is discharged home. Discharge medication reconciliation done. Discharge follow-up instructions completed. Discharge process discussed with the patient and all questions were answered to patient's satisfaction. Total time spent, exact 35 minutes on discharge meds reconciliation, examination, coordination of care with nurses and ancillary staff, review of imaging and blood test and discussion with the patient on follow-up instructions Physical Exam Narrative Physical exam General: Alert, Oriented x3, Cooperative HEENT: Atraumatic, PERRLA, EOMI, Normocephalic Oral: No Gingival or Mucosal Lesions/ Ulcerations Neck: Supple, No JVD, Negative Carotid Bruits Lungs: Air entry diminished in bilateral lung bases. No crepitation/rhonchi Cardiovascular: Regular rate, Regular Rhythm, Normal S1, Normal S2, grade 3/6 LLSB systolic murmur. Abdomen: Bowel Sounds Present, Soft, Non Tender, Non-Distended : No renal angle tenderness. No suprapubic tenderness. Extremities: No edema, Capillary Refill Less than 3 Seconds Skin: No rashes, No breakdown Musculoskeletal: No Tenderness to Palpation of Joints or Extremities Neurological: Cranial nerves II-XII grossly intact, DTR 2+/4 and Symmetrical, Neuro grossly intact Psych/Mental Status: Normal Affect, Appropriate. Weight / BMI Weight Weight: 208 lb 5.389 oz Body Mass Index (BMI) 31.1 ABG / Lab / Microbiology Data Result Diagrams: 07/24/21 05:14 07/24/21 05:14 Laboratory: Laboratory Results - last 24 hr 07/23/21 17:31: WBC 7.6, RBC 4.33, Hgb 13.1, Hct 40.2, MCV 92.8, MCH 30.3, MCHC 32.6, RDW Std Deviation 41.9, RDW Coeff of Teddy 12.3, Plt Count 237, MPV 11.1, Immature Gran % (Auto) 0.400, Neut % (Auto) 49.4, Lymph % (Auto) 39.3, [place] % (Auto) 8.1, Eos % (Auto) 2.4, Baso % (Auto) 0.4, Absolute Neuts (auto) 3.7, Absolute Lymphs (auto) 2.97, Nucleated RBC % 0 07/23/21 17:31: Sodium 141, Potassium 3.7, Chloride 110 H, Carbon Dioxide 24.0, Anion Gap 7, BUN 18, Creatinine 0.91, Estim Creat Clear Calc 74.61, Est GFR (MDRD) Af Amer 84, Est GFR (MDRD) Non-Af 70, BUN/Creatinine Ratio 19.8, Glucose 95, Calcium 9.0, Troponin I High Sens 4 07/23/21 17:31: Magnesium 2.1 07/23/21 21:07: Troponin I High Sens 6 07/23/21 23:45: Troponin I High Sens 6 07/24/21 05:14: WBC 6.5, RBC 4.09 L, Hgb 12.2, Hct 38.6, MCV 94.4, MCH 29.8, MCHC 31.6 L, RDW Std Deviation 42.4, RDW Coeff of Teddy 12.2, Plt Count 214, MPV 10.5, Immature Gran % (Auto) 0.300, Neut % (Auto) 44.7 L, Lymph % (Auto) 43.4 H, [place] % (Auto) 9.3, Eos % (Auto) 2.0, Baso % (Auto) 0.3, Absolute Neuts (auto) 2.9, Absolute Lymphs (auto) 2.80, Nucleated RBC % 0 07/24/21 05:14: Sodium 142, Potassium 3.9, Chloride 113 H, Carbon Dioxide 24.0, Anion Gap 5, BUN 14, Creatinine 0.72, Estim Creat Clear Calc 94.30, Est GFR (MDRD) Af Amer 110, Est GFR (MDRD) Non-Af 91, BUN/Creatinine Ratio 19.5, Glucose 96, Calcium 7.9 L, Total Bilirubin 0.30, AST 17, ALT 26, Alkaline Phosphatase 73, Total Protein 6.2 L, Albumin 3.0 L, Globulin 3.2, Albumin/Globulin Ratio 0.9, Triglycerides 106, Cholesterol 176, LDL Cholesterol 119, VLDL Cholesterol 21, HDL Cholesterol 36 L Microbiology: Microbiology 07/23/21 19:45 Nasal Secretion SARS-CoV-2 Antigen (Rapid) - Final Radiography Diagnostic Testing: Radiology Impression Chest X-Ray 07/23/21 18:15 IMPRESSION: No acute radiographic abnormalities. Electronically Signed: Bernard Guzman MD at 18:43 EDT Tel , Service support , Echocardiogram 07/24/21 07:40 Interpretation Summary Normal LV size. The estimated ejection fraction is 40 %. There is mild to moderate global hypokinesis of the left ventricle. Stage 2 diastolic dysfunction. Pulmonary artery systolic pressure is 26 mmHg. Ordering Physician: Kaushik Arana Performed By: Kita Diaz, CASSY, RVT D/C Instructions Discharge Diet: Low fat / Low cholesterol and 2000 mg Sodium Diet Call your doctor if you observe: Fever of 101 or Higher, Coldness, Increased Pain, Numbness or Tingling, Change in Color, Inability to urinate, Inability to have a bowel movement, Using more than 1 pad per hour, Shortness of breath, Dizziness, Fainting spells, Swelling in the ankles, Chest pain, Prolonged hiccupping, Increased palpitations (irregular heartbeat), Calf discomfort and Uncontrolled pain Meaningful Use Info Meaningful Use Diagnoses (Choose all that apply): CHF CHF DOROTHY/ARB ordered at discharge?: Yes Documented LVEF (%): 40 Discharge Plan Admission Admit Date/Time: 07/23/21 19:38 Primary Reason for Your Visit: Atypical chest pain Attending Provider: Kaushik Arana Primary Care Provider: Care Kalee Nguyen Primary Instructions Patient Instructions: ED Chest Pain, Noncardiac, Heart Failure Additional Instructions / Restrictions: Follow-up Dr Miller, [facility] 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 Patient has appointment in 3 weeks. Discharge Orders/Prescriptions Prescriptions: New lisinopril 2.5 mg tablet 2.5 mg PO DAILY Qty: 30 RF: 0 Continued albuterol sulfate 1 PUFF inhaler 2 puff IH Q6H PRN (Reason: Wheezing) RF: 0 Held diclofenac sodium 75 mg tablet,delayed release (DR/EC) 75 mg PO DAILY RF: 0 Hold Instructions: Hold it for 2 weeks. Discussed with PCP as patient has congestive heart failure Referrals / Follow Up: Care Physician,No Primary [Primary Care Provider] - Within 2 Weeks Disposition Disposition (needs filled in before D/C Order can be placed): Home, Self Care Charges/Coding Visit Charges OBSV E&M: 75399 Observation care discharge
[2021-07-24 13:18] VITALS: BP 107/47; PULSE 54; RESP 14; TEMP 36.6; O2SAT 98
== END 2021-07-24 12:18 | disposition home or self-care (01) ==
LOC: ED 19:30 → PCU 19:56
PROVIDERS: Admitting Provider Family Medicine; Emergency Provider Emergency Medicine; Visit Provider Internal Medicine
DX: R07.89 Other chest pain (principal); F17.210 Nicotine dependence, cigarettes, uncomplicated; E66.9 Obesity, unspecified; I50.42 Chronic combined systolic (congestive) and diastolic (congestive) heart failure; R00.1 Bradycardia, unspecified; J45.990 Exercise induced bronchospasm; K21.9 Gastro-esophageal reflux disease without esophagitis; K58.9 Irritable bowel syndrome, unspecified; F43.10 Post-traumatic stress disorder, unspecified; Z79.899 Other long term (current) drug therapy; Z68.31 Body mass index [BMI] 31.0-31.9, adult
CPT/HCPCS: 36415; 71046; 78452; 80048; 80053; 80061; 83735; 84484; 85025; 87426; 93005; 93017; 93306; 96360; 96361; 99218; 99251; 99285; 99406; A9500; J7030; A4216; G0378; G0463; J2785

== ENCOUNTER 2021-12-16 11:39 | Emergency (ER) | payer BC, SELFPAY ==
[2021-12-16 11:42] VITALS: BP 123/67; PULSE 62; RESP 16; TEMP 36.6; O2SAT 98; BMI 30.4
--- NOTE | 2021-12-16 11:56 | RAD_ITS ---
STUDY: X-RAY CHEST REASON FOR EXAM: Female, 51 years old. Chest pain TECHNIQUE: Single AP portable view of the chest. COMPARISON: Comparison is made with prior study 07/23/2021. FINDINGS: EKG lead is seen. The lungs are clear and expanded. There is no demonstrated pleural abnormality. Normal size heart. Normal mediastinum and keely. Normal visualized pulmonary arteries. Normal visualized aortic arch and descending thoracic aorta. Normal visualized thoracic spine. Normal visualized ribs, clavicles, and shoulders. There is no demonstrated abnormality of the visualized soft tissue structures of the upper abdomen. RAD/Chest 1 View (Portable) IMPRESSION: Normal x-ray examination of the chest. Electronically Signed: Taz Floyd MD at 12:41 EST , Service support ,
--- NOTE | 2021-12-16 11:56 | EKG12_ITS ---
Test Reason : Blood Pressure : / mmHG Vent. Rate : 059 BPM Atrial Rate : 059 BPM P-R Int : 118 ms QRS Dur : 082 ms QT Int : 416 ms P-R-T Axes : 034 021 026 degrees QTc Int : 411 ms Sinus bradycardia Nonspecific ST and T wave abnormality Abnormal ECG Confirmed by IVONNE HOWARD, SHILPA ([id number]), rewrite editor GARCIA REDDY ([id number]) on 12/17/2021 9:38:30 AM Referred By: NOLVIA Confirmed By:SHILPA CORONADO MD
[2021-12-16 12:11] VITALS: O2SAT 97
[2021-12-16 12:18] LABS: Absolute Lymphocyte Count 2.19 X10^3/uL (0.83-4.51); Absolute Neutrophil Count 3.7 X10^3/uL (2.0-7.7); Basophil# 0.03 X10^3/uL; Basophil% 0.5 % (0-1); Eosinophil# 0.13 X10^3/uL; Hematocrit 42.5 % (37-47); Lymphocyte # 2.19 X10^3/ul (0.83-4.51); Lymphocyte % 33.2 % (19-41); Mean Corp Hgb Conc 32.9 g/dL (32-36); Mean Corpuscular Hgb 30.5 pg (27.0-32.0); Mean Corpuscular Volume 92.6 fL (81-99); Mean Platelet Vol. 10.4 fl (6.2-12.0); Monocyte# 0.56 X10^3/uL; Monocyte% 8.5 % (0-10); NRBC Flagged by Analyzer 0 % (0-5); Neutrophil # 3.65 X10^3/uL (2.7-7.7); Neutrophil % 55.3 % (47-70); Platelet Count 229 K/mm3 (150-450); RBC Distribution Width CV 12.2 % (11.6-14.6); RBC Distribution Width SD 41.7 fl (35.1-43.9); Red Blood Count 4.59 M/mm3 (4.2-5.4); White Blood Count 6.6 K/mm3 (4.4-11.0)
--- NOTE | 2021-12-16 12:41 | CT_ITS ---
STUDY: CT BRAIN WITHOUT CONTRAST REASON FOR EXAM: Female, 51 years old. Headache RADIATION DOSAGE (If Supplied By Facility): CTDIvol = ( 44.99 ) mGy, DLP = ( 728.62 ) mGycm TECHNIQUE: Transaxial CT imaging of the brain was performed without administration of intravenous contrast material. Individualized dose optimization techniques were used for this CT. COMPARISON: No relevant priors. FINDINGS: Normal soft tissue structures. Normal calvarium. Normal size ventricles and extra-axial spaces for the patient''s age. Normal white matter tracts of the cerebral hemispheres. Normal basal ganglia and thalami. Normal brainstem. Normal cerebellum. There is no intracranial hemorrhage. There are no findings of an acute ischemic infarction. Mucosal thickening along the inferior medial aspect of the left maxillary sinus. CT/Brain/Head without Contrast IMPRESSION: Normal unenhanced CT scan of the brain. Mucosal thickening along the inferior medial aspect of the left maxillary sinus. Electronically Signed: Taz Floyd MD at 13:10 EST , Service support ,
--- NOTE | 2021-12-16 12:42 | EDS_ITS ---
HPI History of Present Illness Chief Complaint: Palpitations Narrative Narrative: 51-year-old female presenting with headache. Patient states that she has a sharp headache. If she lays on the left side it feels sharp on the left and if she lays on the right side it feels sharp on the right. She states he has a history of migraines but this does not feel like a migraine. She does not have any light or sound sensitivity. Patient states this has been ongoing for 2 weeks. Patient was treated a couple of weeks ago with antibiotics for a sinus infection. She states she still having some drainage and blowing her nose a lot. She has not had a fever or chills. She states that she coughs from time to time. She does not have chest pain. She does admit to feeling short of breath sometimes. Patient also relates that she feels dizzy and when she stands and walks she feels like she is spinning. She has a history of vertigo in the past. She admits that meclizine is the treatment but states she has not tried this. [facility] Medical History Abdominal hernia Bulging disc Chronic post-concussion headache GERD (gastroesophageal reflux disease) Hiatal hernia IBS (irritable bowel syndrome) Mild cervical dysplasia PTSD (post-traumatic stress disorder) Home Medications albuterol sulfate 2 puff IH Q6H PRN 11/12/20 [History Last Taken Unknown] carvedilol 3.125 mg PO DAILY 12/16/21 [History Last Taken Unknown] diphenhydramine HCl [Benadryl] 25 mg PO Q8H PRN #3 cap 12/16/21 [Rx Last Taken Unknown] losartan 12.5 mg PO DAILY 12/16/21 [History Last Taken Unknown] meclizine 25 mg PO TID PRN #30 tab 12/16/21 [Rx Last Taken Unknown] metoclopramide HCl [Reglan] 10 mg PO Q8H PRN PRN #3 tab 12/16/21 [Rx Last Taken Unknown] Allergy/AdvReac Type Severity Reaction Status Date / Time Penicillins Allergy Anaphylaxis Verified 07/23/21 17:22 topiramate [From Topamax] Allergy Rash Verified 07/23/21 17:22 propranolol AdvReac Other Verified 12/16/21 11:42 rosuvastatin [From Crestor] AdvReac Other Verified 12/16/21 11:56 Family History Mother Hypertension Father Heart disease Surgical History H/O wrist surgery Tubal ligation status Social History household members: other details: Patient notes her son lives with her. Smoking Status: Current every day smoker tobacco type: cigarettes alcohol intake: current alcohol intake frequency: holidays/special occasions only substance use type: does not use ROS ROS ED Constitutional Constitutional ED: Denies chills or fever(s) Eyes Eyes: Denies blurry vision or diplopia ENT ENT ED: Reports rhinorrhea; Denies sore throat Cardiovascular Cardiovascular: Denies chest pain Respiratory/Chest Respiratory/Chest: Reports cough and dyspnea Gastrointestinal Gastrointestinal: Reports nausea; Denies abdominal pain or vomiting Genitourinary Genitourinary ED: Denies dysuria or hematuria Musculoskeletal Musculoskeletal: Denies myalgias Integumentary Denies rash Neurologic Neurologic: Reports headache(s); Denies paresthesias or weakness EXAM Physical Exam Const Vital Signs: 12/16/21 11:42 12/16/21 11:55 12/16/21 12:11 Temperature 98 F Temperature Source Temporal Pulse Rate 62 Respiratory Rate 16 Respiratory Effort Normal Non-Labored Respiratory Pattern Normal Blood Pressure 123/67 H Blood Pressure Mean 85 Pulse Ox 98 97 Oxygen Delivery Method Room Air Room Air 12/16/21 13:11 Temperature Temperature Source Pulse Rate 55 L Respiratory Rate 17 Respiratory Effort Respiratory Pattern Blood Pressure 108/64 Blood Pressure Mean 78 Pulse Ox Oxygen Delivery Method Positive well nourished General Appearance ED: NAD HEENT Reports normocephalic and moist mucous membranes HEENT Narrative: Reproducible nystagmus and dizziness with modified [place]- Hallpike. atraumatic Eyes PERRL and EOMs intact bilaterally General Eye ED: Negative for pale conjunctiva or scleral icterus Neck no lymphadenopathy and supple Resp normal respiratory effort and clear to auscultation bilaterally Cardio regular rate and regular rhythm Neuro oriented x3 and CN's II-XII intact bilaterally Sensorium / Orientation: awake and alert Motor Exam: strength 5/5 throughout Psych mental status grossly normal Skin Rashes: no rashes MDM MDM MDM Narrative Medical decision making narrative: Patient presents with headache and dizziness. She does appear to have benign peripheral vertigo. She has a history of this. Patient also has complaint of feeling short of breath this morning and feeling off. She states she has nasal drainage which has not improved with her previous antibiotics treatment. She is not having any fevers, chills. She does admit to an occasional cough. I ordered Reglan and Benadryl however the patient is driving does not want to take this. She was given meclizine for her vertigo and her dizziness now improved. I obtained a head CT which shows no acute intracranial process. She does have some mucosal thickening along the inferior medial aspect of the left maxillary sinus. She has already been treated with antibiotics and did a full course of doxycycline. I do not believe she needs another course. Her CBC and BMP are normal. High-sensitivity troponin is 4. H eart rate is sinus rhythm with a ventricular rate of 59 bpm without sign of ischemic change or dysrhythmia. Chest x-ray on my interpretation shows no acute cardiopulmonary process. I think the patient would benefit from follow-up with ENT and I will provide this. I gave her a prescription for Reglan and Benadryl for home x3 doses. She states she cannot take NSAIDs at home and Tylenol is not helping her headache. Patient is given return precautions. Impression: 1. Headache 2. Benign positional vertigo 3. History of sinusitis Lab Data Labs: Laboratory Results - last 24 hr 12/16/21 12/16/21 12:08 12:08 WBC 6.6 RBC 4.59 Hgb 14.0 Hct 42.5 MCV 92.6 MCH 30.5 MCHC 32.9 RDW Std Deviation 41.7 RDW Coeff of Teddy 12.2 Plt Count 229 MPV 10.4 Immature Gran % (Auto) 0.500 Neut % (Auto) 55.3 Lymph % (Auto) 33.2 [place] % (Auto) 8.5 Eos % (Auto) 2.0 Baso % (Auto) 0.5 Absolute Neuts (auto) 3.7 Absolute Lymphs (auto) 2.19 Nucleated RBC % 0 Sodium 139 Potassium 3.9 Chloride 107 Carbon Dioxide 27.0 Anion Gap 5 BUN 14 Creatinine 0.92 Estim Creat Clear Calc 72.98 Est GFR (MDRD) Af Amer 83 Est GFR (MDRD) Non-Af 68 BUN/Creatinine Ratio 15.2 Glucose 105 Calcium 8.7 Troponin I High Sens 4 Radiography Diagnostic Testing: Clinical Impression(s) from Imaging Studies Chest X-Ray 12/16/21 11:56 IMPRESSION: Normal x-ray examination of the chest. Electronically Signed: Taz Floyd MD at 12:41 EST , Service support , Brain CT 12/16/21 12:41 IMPRESSION: Normal unenhanced CT scan of the brain. Mucosal thickening along the inferior medial aspect of the left maxillary sinus. Electronically Signed: Taz Floyd MD at 13:10 EST , Service support , Discharge Plan Triage Chief Complaint: Palpitations ED Provider: Kwasi Ramsey Dx/Rx/DC Orders Instructions: Self-Care for Headaches, ED BPV Vertigo Prescriptions: New metoclopramide HCl [Reglan] 10 mg tablet 10 mg PO Q8H PRN PRN (Reason: nausea and vomiting) Qty: 3 RF: 0 diphenhydramine HCl [Benadryl] 25 mg capsule 25 mg PO Q8H PRN (Reason: headache) Qty: 3 RF: 0 meclizine 25 mg tablet 25 mg PO TID PRN (Reason: dizziness) Qty: 30 RF: 0 No Action albuterol sulfate 1 PUFF inhaler 2 puff IH Q6H PRN (Reason: Wheezing) RF: 0 carvedilol 3.125 mg tablet 3.125 mg PO DAILY RF: 0 losartan 25 mg tablet 12.5 mg PO DAILY RF: 0 Primary Care Provider: Care Physician,No Primary Referrals: Tobin Shields MD [STAFF PHYSICIAN] - As Needed Care Physician,No Primary [Primary Care Provider] - Disposition Disposition: Home, Self Care
[2021-12-16 12:44] LABS: Anion Gap 5 (5-15); BUN 14 mg/dL (7-18); BUN/Creat Ratio 15.2 RATIO (10-20); Calcium,Total 8.7 mg/dL (8.5-10.1); Chloride 107 mmol/L (98-107); Creatinine, Serum 0.92 mg/dL (0.55-1.02); EST Glomerular Filtration Rate 68 mL/min (>60); Est Glom Filt Rate - Afr Amer 83 mL/min (>60); Estimated Creatinine Clearance 72.98 ml/min; Glucose 105 mg/dL (74-106); Potassium 3.9 mmol/L (3.5-5.1); Sodium Level 139 mmol/L (136-145); Troponin-I HS 4 pg/mL (3.0-54.0)
[2021-12-16 13:11] VITALS: BP 108/64; PULSE 55; RESP 17
[2021-12-16] MEDS: Meclizine HCl 25 MG Tablet PO (13:19)
[2021-12-16] MEDS: Metoclopramide 10 MG/2 ML Vial IV (13:38)
== END 2021-12-16 15:17 | disposition home or self-care (01) ==
PROVIDERS: Emergency Provider Student in an Organized Health Care Education/Training Program; Visit Provider Student in an Organized Health Care Education/Training Program
DX: R51.9 Headache, unspecified (principal); H81.10 Benign paroxysmal vertigo, unspecified ear; F17.210 Nicotine dependence, cigarettes, uncomplicated; R00.2 Palpitations; Z79.899 Other long term (current) drug therapy
CPT/HCPCS: 70450; 71045; 80048; 84484; 85025; 87426; 93005; 99285; A4216